=== PATIENT | female | born 1955 | race Caucasian/White ===

== ENCOUNTER 2022-10-30 12:00 | Emergency (ER) | payer OTHER ==
[~2022-10-30] VITALS: Ht 172.7 cm; Wt 83.9 kg
[2022-10-30] MEDS ORDERED: CARDURA1 MG (12:16)
[2022-10-30] MEDS ORDERED: GLUMETZA500 MG (12:16)
[2022-10-30] MEDS ORDERED: SYNTHROID75 MCG (12:16)
[2022-10-30] MEDS ORDERED: LOSARTAN POTASS50 MG (12:16)
== END 2022-10-30 18:50 | disposition home or self-care (01) ==
LOC: ER 12:00
DX: R00.2 Palpitations (principal); E11.9 Type 2 diabetes mellitus without complications; Z79.84 Long term (current) use of oral hypoglycemic drugs; I10 Essential (primary) hypertension; Z20.822 Contact with and (suspected) exposure to COVID-19; Z88.0 Allergy status to penicillin